=== PATIENT | female | born 1935 | race Caucasian/White ===

== ENCOUNTER 2021-12-21 17:53 | Inpatient (IN) | payer MEDICARE ==
[~2021-12-21] VITALS: Ht 147.3 cm; Wt 51.8 kg
[2021-12-21 21:09] LABS: BASOPHIL 0.3 % (0-2); EOSINOPHIL 0.3 % (0-7); HCT 37.7 % (37.0-47.0); HGB 12.1 g/dl (12.5-16.0); LYMPHOCYTE 11.8 % (15-48); MCH 30.8 pg (25.0-31.0); MCHC 32.1 g/dL (32.0-36.0); MCV 95.9 fL (78.0-100.0); MPV 8.5 fL (6.0-9.5); NEUTROPHIL 82.1 % (41-80); NRBC 0; PLT 280 K/uL (150-400); RBC 3.93 M/uL (4.20-5.40); RDW 13.9 % (11.5-14.0); WBC 15.5 K/uL (4.0-10.5)
[2021-12-21 21:39] LABS: INR 1.11 (0.9-1.2); PROTHROMBIN TIME 13.7 SECONDS (11.8-13.4)
[2021-12-21 21:59] LABS: ALT <6 U/L (14-59); AST 6 U/L (15-37); BILIRUBIN - TOTAL 0.4 mg/dL (0.2-1.0); BUN 29 mg/dL (7-18); CHLORIDE 102 mmol/L (98-107); CO2 (BICARBONATE) 24 mmol/L (21-32); CREATININE 0.88 mg/dL (0.51-0.95); GLUCOSE 118 mg/dL (74-106); POTASSIUM 3.9 mmol/L (3.5-5.1)
[2021-12-21 22:13] LABS: ALBUMIN 3.9 g/dL (3.4-5.0); ALKALINE PHOSHATASE 47 U/L (46-116); GLOBULIN (CALCULATION) 3.8 g/dL; TOTAL PROTEIN 7.7 g/dL (6.4-8.2)
[2021-12-22 00:09] LABS: BILIRUBIN NEGATIVE (NEGATIVE); BLOOD NEGATIVE Ery/uL (NEGATIVE); CLARITY CLEAR (CLEAR); COLOR YELLOW (YELLOW); GLUCOSE (U) NORMAL (NORMAL); LEUKOCYTES NEGATIVE Leu/uL (NEGATIVE); NITRITE NEGATIVE (NEGATIVE); PROTEIN 1+ mg/dL (NEGATIVE); UROBILINOGEN 0.2 mg/dL (0.2-1.0); pH 6.5 (5.0-9.0)
[2021-12-22 00:23] LABS: BACTERIA 2+; MUCOUS MODERATE; URINARY RBC RARE
[2021-12-22] MEDS ORDERED: DICLOFENAC SOD100 G1 TOP (03:27)
[2021-12-22] MEDS ORDERED: ATORVASTATIN CA20 MG PO (03:28)
[2021-12-22] MEDS ORDERED: CILOSTAZOL100 MG PO (03:30)
[2021-12-22] MEDS ORDERED: FLUOXETINE HCL40 MG PO (03:31)
[2021-12-22] MEDS ORDERED: LEVOTHYROXINE88 MCG PO (03:32)
[2021-12-22] MEDS ORDERED: ASPIRIN EC81 MG PO (03:33)
[2021-12-22 04:16] LABS: LACTIC ACID 3.3 mmol/L (0.4-1.9)
--- NOTE | 2021-12-22 12:21 | NUR ---
12/22/21 Ms. Anderson lives alone. She has a rollator, rw, 3in1, s. chair and cane. PT recommended SNF. Ms. Anderson is in agreement and chose [facility]. A referral will be made when Therapy notes are available. Patient wants [facility] to transport.
--- NOTE | 2021-12-22 14:59 | NUR ---
12/22/21 [facility] has accepted for admission on 12/23.
[2021-12-23 07:43] LABS: BUN/CREAT RATIO (CALC) 30.7 RATIO; CREATININE 0.75 mg/dL (0.51-0.95); POTASSIUM 4.3 mmol/L (3.5-5.1)
[2021-12-23 09:02] LABS: BASOPHIL 0.4 % (0-2); EOSINOPHIL 0.9 % (0-7); HCT 28.1 % (37.0-47.0); LYMPHOCYTE 14.2 % (15-48); MCH 31.8 pg (25.0-31.0); MCV 99.3 fL (78.0-100.0); MPV 9.5 fL (6.0-9.5); NEUTROPHIL 76.1 % (41-80); NRBC 0; PLT 206 K/uL (150-400); RBC 2.83 M/uL (4.20-5.40); RDW 14.2 % (11.5-14.0); WBC 12.7 K/uL (4.0-10.5)
[2021-12-23] MEDS ORDERED: SENOKOT8.6 MG PO (09:09)
[2021-12-23] MEDS ORDERED: FEOSOL325 MG PO (09:09)
[2021-12-23] MEDS ORDERED: NORCO 5-325 TA1 EACH PO (09:09)
[2021-12-23] MEDS ORDERED: FLORANEX TABLE1 EACH PO (09:09)
[2021-12-23] MEDS ORDERED: MACROBID100 MG PO (09:09)
--- NOTE | 2021-12-23 10:39 | NUR ---
12/23/21 A cab voucher was provided for transport to [facility].
== END 2021-12-23 12:10 | DRG 690 ==
LOC: FER 17:53 → FTCU 12-22 00:20 → FMS 12-22 18:53
PROVIDERS: Emergency Medicine; Family Medicine; Hospitalist; ADMIT Internal Medicine
PROC: 0HQ0XZZ Repair Scalp Skin, External Approach (ICD-10-PCS; principal; 2021-12-21)
PROC: 3E0234Z Introduction of Serum, Toxoid and Vaccine into Muscle, Percutaneous Approach (ICD-10-PCS; 2021-12-21)
DX: N30.00 Acute cystitis without hematuria (principal); S32.592A Other specified fracture of left pubis, initial encounter for closed fracture; S01.01XA Laceration without foreign body of scalp, initial encounter; Z23 Encounter for immunization; Z20.822 Contact with and (suspected) exposure to COVID-19; W01.0XXA Fall on same level from slipping, tripping and stumbling without subsequent striking against object, initial encounter; E03.9 Hypothyroidism, unspecified; F32.A Depression, unspecified; M19.90 Unspecified osteoarthritis, unspecified site; K59.00 Constipation, unspecified; F32.9 Major depressive disorder, single episode, unspecified; N18.2 Chronic kidney disease, stage 2 (mild); F41.9 Anxiety disorder, unspecified; D50.9 Iron deficiency anemia, unspecified; Z87.891 Personal history of nicotine dependence
CPT/HCPCS: 36415; 70450; 71045; 72125; 72170; 80048; 80053; 81001; 82607; 83540; 83550; 83605; 84484; 85025; 85610; 87088; 90471; 90715; 93005; 94010; 97162; 97165; 97530-GP; J0696; J1650; J7030; U0002